=== PATIENT | male | born 1990 | race Caucasian/White ===

== ENCOUNTER 2018-03-08 22:59 | Emergency (ER) | payer OTHER, SELFPAY ==
[2018-03-08] MEDS ORDERED: Ibuprofen 800 MG TAB ONE (23:28)
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
== END 2018-03-09 00:03 | disposition home or self-care (01) ==
LOC: SCSER 22:59
DX: S01.312A Laceration without foreign body of left ear, initial encounter (principal); S39.012A Strain of muscle, fascia and tendon of lower back, initial encounter; S00.83XA Contusion of other part of head, initial encounter; S40.811A Abrasion of right upper arm, initial encounter; F17.210 Nicotine dependence, cigarettes, uncomplicated; V53.6XXA Passenger in pick-up truck or van injured in collision with car, pick-up truck or van in traffic accident, initial encounter
CPT/HCPCS: 72100